=== PATIENT | male | born 1935 | race Caucasian/White ===

== ENCOUNTER 2018-09-05 10:14 | Inpatient (IN) ==
[2018-09-05 10:59] LABS: Hematocrit 39.7 % (39.0-51.0); Hemoglobin 13.4 gm/dL (13.0-17.0); Lymph # (Auto) 0.2 th/mm3 (1.0-4.8); Mean Corpuscular HGB Conc 33.9 % (32.0-36.0); Mean Corpuscular Hemoglobin 29.8 pg (27.0-34.0); Mean Corpuscular Volume 88.2 fL (80.0-100.0); Mean Platelet Volume 6.7 fL (7.0-11.0); Mono # (Auto) 0.4 th/mm3 (0.0-0.9); Mono % (Auto) 4.9 % (0.0-8.0); Neut # (Auto) 7.6 th/mm3 (1.8-7.7); Neut % (Auto) 92.1 % (16.0-70.0); Platelet Count 198 th/mm3 (150-450); Red Cell Distribution Width 14.8 % (11.6-17.2); White Blood Count 8.2 th/mm3 (4.0-11.0)
[2018-09-05 11:11] LABS: Calcium 8.9 mg/dL (8.5-10.1); Carbon Dioxide 22.2 meq/L (21.0-32.0); Potassium 4.4 meq/L (3.5-5.1)
--- NOTE | 2018-09-05 11:17 | ED ---
HPI General Chief Complaint: Trauma Stated Complaint: Trama Transfer/FH Time Seen by Provider: 09/05/18 10:24 Source: patient, EMS and RN notes reviewed Mode of arrival: EMS Limitations: other (poor historian) History of Present Illness HPI narrative: 83-year-old male is a trauma transfer from [facility] for multiple facial fractures. Patient also takes Eliquis. Patient was given 4 mg of morphine for pain control and EMS states that he has been drowsy in transport. He will awaken to questioning and knows that he is at [place] in his name. He states he does remember falling but is a poor historian in terms of details. Related Data Home Medications Medication Instructions Recorded Confirmed aspirin 162 mg PO DAILY 09/05/18 09/05/18 clopidogrel 75 mg PO DAILY 09/05/18 09/05/18 finasteride mg PO DAILY 09/05/18 glipizide mg PO DAILY 09/05/18 levothyroxine mcg PO DAILY 09/05/18 losartan 25 mg PO DAILY 09/05/18 09/05/18 metoprolol tartrate 25 mg PO BID 09/05/18 09/05/18 tamsulosin [Flomax] 0.4 mg PO DAILY 09/05/18 09/05/18 Allergies Allergy/AdvReac Type Severity Reaction Status Date / Time Penicillins AdvReac Hives Verified 09/05/18 10:48 Sulfa (Sulfonamide AdvReac Hives Verified 09/05/18 10:48 Antibiotics) cklo Allergy Hives Uncoded 09/05/18 10:48 Review of Systems ROS: all other systems reviewed are negative [facility] Medical History Medical History Diabetes (Acute) Heart attack (Acute) Hypercholesterolemia (Acute) Hypothyroidism (Acute) Surgical History Surgical History History of angioplasty (Acute) Social History Social History Substance History: No History of Abuse Smoking Status: Former smoker How Often Do You Have a Drink Containing Alcohol: Never Recent Travel in [facility] within the Last 8 Weeks: No Recent Out of Country Travel within the Last 8 Weeks: No Immunization History Tetanus Immunization: >5 Years Exam Narrative Exam Narrative: GENERAL: 83-year-old male who appears drowsy but awakens to voice SKIN: Focused skin assessment warm/dry. HEAD: Ecchymosis noted to face. Normocephalic. EYES: Pupils equal and round. No scleral icterus. No injection or drainage. ENT: No nasal bleeding or discharge. Mucous membranes pink and moist. NECK: Trachea midline. CARDIOVASCULAR: Regular rate and rhythm. RESPIRATORY: No accessory muscle use. Clear to auscultation. Breath sounds equal bilaterally. GASTROINTESTINAL: Abdomen soft, non-tender, nondistended. MUSCULOSKELETAL: No clubbing. No cyanosis. No edema. NEUROLOGICAL: Drowsy but awakens to voice. Moves all extremities, normal speech. Course Consultations Consultation #1: dr syed agrees to repeat imaging and admit Initial Documented Vital Signs Temperature 97.7 F 09/05/18 10:35 Pulse Rate 86 09/05/18 10:35 Respiratory Rate 18 09/05/18 10:35 Blood Pressure 148/68 H 09/05/18 10:35 Pulse Oximetry 96 09/05/18 10:35 Last Documented Vital Signs Temperature 97.7 F 09/05/18 10:35 Pulse Rate 86 09/05/18 10:35 Respiratory Rate 18 09/05/18 10:35 Blood Pressure 148/68 H 09/05/18 10:35 Pulse Oximetry 96 09/05/18 10:[address] [facility] Narrative Medical decision making narrative: Patient arrived as a trauma transfer. Given patient is drowsy and on Eliquis will repeat CT brain to rule out delayed bleed. He will be admitted to the ICU for close monitoring overnight and further care with the trauma service Medical Screen Exam Complete: Yes Emergency Medical Condition: Yes Differential Diagnosis Differential Diagnosis: Fracture, bleed, anemia Lab Data Result diagrams: 09/05/18 10:43 09/05/18 10:43 Lab Results 09/05/18 09/05/18 Range/Units 10:43 10:43 WBC 8.2 (4.0-11.0) th/mm3 RBC 4.50 (4.50-5.90) mil/mm3 Hgb 13.4 (13.0-17.0) gm/dL Hct 39.7 (39.0-51.0) % MCV 88.2 (80.0-100.0) fL MCH 29.8 (27.0-34.0) pg MCHC 33.9 (32.0-36.0) % RDW 14.8 (11.6-17.2) % Plt Count 198 (150-450) th/mm3 MPV 6.7 L (7.0-11.0) fL Neut % (Auto) 92.1 H (16.0-70.0) % Lymph % (Auto) 3.0 L (9.0-44.0) % [place] % (Auto) 4.9 (0.0-8.0) % Eos % (Auto) 0.0 (0.0-4.0) % Baso % (Auto) 0.0 (0.0-2.0) % Neut # (Auto) 7.6 (1.8-7.7) th/mm3 Lymph # (Auto) 0.2 L (1.0-4.8) th/mm3 [place] # (Auto) 0.4 (0.0-0.9) th/mm3 Eos # (Auto) 0.0 (0.0-0.4) th/mm3 Baso # (Auto) 0.0 (0.0-0.2) th/mm3 WBC Differential . Differential Comment Auto diff final Sodium 138 (136-145) meq/L Potassium 4.4 (3.5-5.1) meq/L Chloride 108 H (98-107) meq/L Carbon Dioxide 22.2 (21.0-32.0) meq/L Anion Gap 8 (5-15) meq/L BUN 26 H (7-18) mg/dL Creatinine 1.22 (0.60-1.30) mg/dL Estimated GFR 57 L (>89) mL/min Random Glucose 197 H (74-106) mg/dL Calcium 8.9 (8.5-10.1) mg/dL Discharge Plan Discharge Disposition Patient Disposition: ED Admit(ED Internal Use Only) Discharge Order Discharge Orders: ED Use Only Admit Order (Routine); Ordered 09/05/18 Ordered By: Jess Moffett Discharge Details Diagnosis: Cranial facial fractures Physicians Team ED Provider: Jess Moffett Primary Care Provider: NON STAFF,PROVIDER Attending Provider: Dm Hoffmann Status ED Status: Admitted Patient
--- NOTE | 2018-09-05 11:44 | CT ---
EXAM DATE: 09/05/2018 11:32 AM EST AGE/SEX: 83 years / Male INDICATIONS: Trauma, fall. CLINICAL DATA: This is the patient's initial encounter. Patient reports that signs and symptoms have been present for 1 day and indicates a pain score of Nonresponsive. MEDICAL/SURGICAL HISTORY: Non-responsive. Non-responsive. RADIATION DOSE: 25.04 CTDI (mGy) COMPARISON: No prior exams available for comparison. TECHNIQUE: Contiguous axial images were obtained using helical multirow detector technique. The vol umetric data was post-processed with multiplanar reconstruction in oblique axial, sagittal, and coron al planes. Using automated exposure control and adjustment of the mA and/or kV according to patient s ize, radiation dose was kept as low as reasonably achievable to obtain optimal diagnostic quality kimmy ges. DICOM format image data is available electronically for review and comparison. FINDINGS: No significant subluxation or soft tissue swelling is seen. No definite fracture is identified for t echnique. C2-C3: No appreciable compromise to the thecal sac, exiting nerve roots are seen. The neural foramin a are patent bilaterally. No appreciable thecal sac stenosis is seen. C3-C4: No appreciable compromise to the thecal sac, exiting nerve roots are seen. The neural foramin a are patent bilaterally. No appreciable thecal sac stenosis is seen. Slight bulging disc and hypertr ophic changes are seen with indentation on the thecal sac and no significant compromise to the thecal sac or the exiting nerve roots. C4-C5: No appreciable compromise to the thecal sac, exiting nerve roots are seen. The neural foramin a are patent bilaterally. No appreciable thecal sac stenosis is seen. Slight bulging disc and hypertr ophic changes are seen with indentation on the thecal sac and no significant compromise to the thecal sac or the exiting nerve roots. C5-C6: Significant degenerative changes are present in the disc space and facets. Slight bulging dis c and hypertrophic changes are seen with indentation on the thecal sac and no significant compromise to the thecal sac or the exiting nerve roots. C6-C7: No appreciable compromise to the thecal sac, exiting nerve roots are seen. The neural forami na are patent bilaterally. No appreciable thecal sac stenosis is seen. Slight degenerative changes ar e present in the disc space and facets. Slight bulging disc and hypertrophic changes are seen with indentation on the thecal sac and no signi ficant compromise to the thecal sac or the exiting nerve roots. C7-T1: No appreciable compromise to the thecal sac, exiting nerve roots are seen. The neural foramin a are patent bilaterally. No appreciable thecal sac stenosis is seen. CONCLUSION: Degenerative spondylosis at multiple levels without any significant compromise to the ex iting nerve roots or the thecal sac. Electronically signed by: Buzz Knapp MD Board Certified Radiologist 09/05/2018 11:43 AM EST
--- NOTE | 2018-09-05 11:48 | CT ---
EXAM DATE: 09/05/2018 11:26 AM EST AGE/SEX: 83 years / Male INDICATIONS: Trauma, fall. CLINICAL DATA: This is the patient's initial encounter. Patient reports that signs and symptoms have been present for 1 day and indicates a pain score of Nonresponsive. MEDICAL/SURGICAL HISTORY: Non-responsive. Non-responsive. RADIATION DOSE: 63.83 CTDI (mGy) COMPARISON: No prior exams available for comparison. TECHNIQUE: Contiguous images in the axial and coronal planes were obtained using helical multirow de tector technique. Using automated exposure control and adjustment of the mA and/or kV according to p atient size, radiation dose was kept as low as reasonably achievable to obtain optimal diagnostic garry lity images. DICOM format image data is available electronically for review and comparison. FINDINGS: The nasal septum is slightly towards the left. There is opacification of multiple sinuses most of the tibias or chronic mucoperiosteal thickening, however slight hemorrhage present within the maxillary sinuses. There are fractures of the anterior glenoid air cells and lamina Propecia on the right side with a fracture involving the right frontal sinus. There are also fractures of the lateral khan of b ilateral maxillary sinuses. There are gas bubbles in the soft tissues outside the maxillary sinuses b ilaterally. CONCLUSION: 1. There are fractures of maxillary sinuses, right frontal sinus, and right lamina Propecia. Electronically signed by: Buzz Knapp MD Board Certified Radiologist 09/05/2018 11:47 AM EST
--- NOTE | 2018-09-05 11:51 | CT ---
EXAM DATE: 09/05/2018 11:24 AM EST AGE/SEX: 83 years / Male INDICATIONS: Trauma, fall. CLINICAL DATA: This is the patient's initial encounter. Patient reports that signs and symptoms have been present for 1 day and indicates a pain score of Nonresponsive. MEDICAL/SURGICAL HISTORY: Non-responsive. Non-responsive. RADIATION DOSE: 37.89 CTDI (mGy) COMPARISON: No prior exams available for comparison. TECHNIQUE: CT of the head without contrast. Using automated exposure control and adjustment of the mA and/or kV according to patient size, radiation dose was kept as low as reasonably achievable to ob tain optimal diagnostic quality images. DICOM format image data is available electronically for revi ew and comparison. FINDINGS: There is no evidence for intracranial hemorrhage, mass effect, mass lesions, or edema. The visualized bony structures appear intact. Slight degree of brain atrophy is seen. Slight periventri cular white matter changes are seen nonspecific mostly consistent with chronic small vessel ischemic changes. There are no signs of acute infarction for technique. There are facial bone fractures discu ssed on the patient's facial CT. CONCLUSION: Slight chronic small vessel ischemic and atrophic changes. Facial fractures discussed on the patient's facial CT. Electronically signed by: Buzz Knapp MD Board Certified Radiologist 09/05/2018 11:49 AM EST
[2018-09-05] MEDS ORDERED: Naloxone Inj 0.4 MG/ML Vial IV.PUSH PRN (12:34)
[2018-09-05] MEDS ORDERED: Bisacodyl 10 MG Supp RECTAL PRN (12:34)
[2018-09-05] MEDS ORDERED: Post-op Orders (for Pharmacy) OTHER ONE (12:34)
--- NOTE | 2018-09-05 13:07 | MH ---
cc: Dm Hoffmann MD DATE OF ADMISSION: 09/05/2018 ADMITTING PHYSICIAN: Dm Hoffmann MD, trauma surgery. REASON FOR ADMISSION: Multiple facial fracture and medical problems. HISTORY OF PRESENT ILLNESS: This 83-year-old gentleman fell at home somehow face down and sustained facial fractures. The patient was evaluated at [facility], and a request was made to transfer him to trauma Center, which was readily done. The patient now arrives and is placed in the ICU for further care. PAST MEDICAL HISTORY: Diabetes mellitus, coronary artery disease, and myocardial infarction in the past, hypothyroidism, hypercholesteremia. SURGICAL HISTORY: Coronary artery angioplasty. SOCIAL HISTORY: The patient does not drink. Used to smoke. He is a [place] and retired. PHYSICAL EXAMINATION: GENERAL: A pleasant 83-year-old gentleman, awake, alert, oriented. HEENT: Normocephalic. Trauma to the head consisting of bruising and swelling of the face, pretty severe over both cheeks. Looking at it, I would have thought that the zygomas are fractured, but I do not see that on the CAT scan. Pupils are equal, reactive. Extraocular muscles are intact. The right lower and upper palpebrae are fairly swollen. The patient has some blood in the back of the mouth and some dried blood in the nose. NECK: Bilateral carotid pulses with bilateral carotid bruits, 3-6. No signs of trauma to the neck. CHEST: Bilateral breath sounds. HEART: Regular rate and rhythm. ABDOMEN: Soft. Active bowel sounds. No rebound, no guarding, no masses. EXTREMITIES: The patient has good proximal and distal pulses. No signs of acute deficit. BACK: Normal. NEUROLOGIC: The patient is fully intact. [place] coma scale is 15. He does not have any signs of intracranial injury on the repeat CT scan. Motorically and sensory, the patient is fully intact. Deep tendon reflexes normal. No pathologic reflexes. IMPRESSION: This is an 83-year-old gentleman with extensive facial fractures including maxillary and nasal fractures and frontal sinus fracture. The patient will be admitted, tuned up for surgery, and Dr. Santana has been consulted. It should be noted that Dr. Santana is known to the family, and he previously operated on the patient's , and they are extremely happy that him and Dr. Jauregui are available. CRITICAL CARE TIME: 32 minutes. MD KOMAL Sanford/adarsh , 12:46 PM , 12:54 PM
[2018-09-05] MEDS ORDERED: Morphine Inj 4 MG/ML Vial IV.PUSH PRN (14:08)
[2018-09-05] MEDS ORDERED: Dextrose 50% in Water 50 ML Vial IV.PUSH PRN (14:09)
--- NOTE | 2018-09-05 15:17 | US ---
EXAM DATE: 09/05/2018 3:10 PM EST AGE/SEX: 83 years / Male INDICATIONS: Syncope. CLINICAL DATA: This is the patient's initial encounter. Patient reports that signs and symptoms have been present for 1 day and indicates a pain score of 1/10. MEDICAL/SURGICAL HISTORY: Diabetes. Hypothyroidism. heart attack. Hypercholesterolemia. Angio plasty. COMPARISON: No prior exams available for comparison. VELOCITY PARAMETERS: ICA/CCA Ratio: Right 1.08 , Left 1.21 ICA: Right 115 cm/sec, Left 152 cm/sec CCA: Right 106 cm/sec, Left 126 cm/sec ECA: Right 230 cm/sec, Left 182 cm/sec Vertebral: Right 64 cm/sec antegrade, Left 66 cm/sec antegrade FINDINGS: Right Carotid: No significant plaque is visualized.The waveforms are within normal limits. Left Carotid: Mild arteriosclerotic plaque is visualized. The waveforms are within normal limits. Other: None. CONCLUSION: No evidence for hemodynamically significant stenosis. Electronically signed by: Buzz Knapp MD Board Certified Radiologist 09/05/2018 3:16 PM EST
[2018-09-05] MEDS: Metoprolol Tartrate 25 MG Tablet PO SCH ×2 (15:26→21:07)
[2018-09-05] MEDS: Sod Chloride 0.9% Inj 1,000 ML IV.CONT SCH (15:26)
[2018-09-05] MEDS: Insulin NovoLOG Aspart Correctional Sugar Inj SQ SCH ×2 (17:25→21:08)
[2018-09-05] MEDS: Senna/Docusate Sodium 8.6/50 MG Tablet PO SCH (21:08)
[2018-09-06] MEDS: Sod Chloride 0.9% Inj 1,000 ML IV.CONT SCH (01:42)
[2018-09-06] MEDS: Insulin NovoLOG Aspart Correctional Sugar Inj SQ SCH ×3 (03:13→11:08)
[2018-09-06 05:48] LABS: Baso % (Auto) 0.1 % (0.0-2.0); Eos # (Auto) 0.1 th/mm3 (0.0-0.4); Eos % (Auto) 0.8 % (0.0-4.0); Hematocrit 34.8 % (39.0-51.0); Hemoglobin 11.6 gm/dL (13.0-17.0); Lymph % (Auto) 12.3 % (9.0-44.0); Mean Corpuscular HGB Conc 33.3 % (32.0-36.0); Mean Corpuscular Hemoglobin 29.7 pg (27.0-34.0); Mean Corpuscular Volume 89.2 fL (80.0-100.0); Mean Platelet Volume 6.8 fL (7.0-11.0); Mono % (Auto) 11.9 % (0.0-8.0); Neut # (Auto) 6.1 th/mm3 (1.8-7.7); Neut % (Auto) 74.9 % (16.0-70.0); Platelet Count 187 th/mm3 (150-450); Red Blood Count 3.91 mil/mm3 (4.50-5.90); Red Cell Distribution Width 14.9 % (11.6-17.2); White Blood Count 8.2 th/mm3 (4.0-11.0)
[2018-09-06] MEDS ORDERED: Levothyroxine 50 MCG Tablet PO SCH (06:00)
[2018-09-06 06:15] LABS: Calcium 8.4 mg/dL (8.5-10.1); Carbon Dioxide 22.7 meq/L (21.0-32.0); Potassium 4.9 meq/L (3.5-5.1)
[2018-09-06 07:29] VITALS: TEMP 98.6
[2018-09-06] MEDS: Senna/Docusate Sodium 8.6/50 MG Tablet PO SCH (08:56)
[2018-09-06] MEDS: Metoprolol Tartrate 25 MG Tablet PO SCH (08:56)
--- NOTE | 2018-09-06 11:25 | P.DS ---
Date of admission: 09/05/18 10:30 Primary care physician: PROVIDER NON STAFF Brief History from admission: S/P Fall DS: Diagnosis - Discharge Diagnosis (1) Fall Status: Acute (2) Cranial facial fractures Status: Acute DS: Medications - Discharge Medications Prescriptions: oxycodone-acetaminophen 1 tab PO Q4H PRN #14 tab PRN Reason: Acute Pain DS: Summary Hospital Course: KIVALINA: Fell striking his face. ?LOC. Trauma transfer. On Plavix at home. INJURIES BILAT maxillary sinus fx RIGHT frontal sinus fx RIGHT lamina Propecia PMHx: DM. CAD. WI. HLD. Hypothyroidism. BILAT maxillary sinus fx, RIGHT frontal sinus fx, RIGHT lamina Propecia OMFS consulted, follow-up outpatient Nonoperative management Pain control Bowel regimen OOB- PT and OT ordered Fall secondary to dehydration vs bradycardia Patient reportedly had multiple bouts of diarrhea before feeling lightheaded and falling Encouraged hydration Decreased Lopressor to 12.5 mg BID Hold Plavix for now and discuss risks versus benefits of continuation with PCP Follow-up with PCP in 1 week Plan of care discussed with patient at bedside. Collaborating Trauma surgeon agrees with plan. Case management consulted to assist with discharge planning. Patient is clear from trauma surgery standpoint to safely discharge home. DME ordered. - Time Spent with Patient Total time spent providing and/or coordinating discharge services: Greater than 30 minutes - Quality: VTE Deep Vein Thrombosis/Pulmonary Embolism Present on Admission: No Exam Vital signs: Vital Signs 09/05/18 11:36 09/05/18 11:58 09/05/18 11:59 Temperature Pulse Rate 90 88 86 Respiratory Rate 15 20 16 Blood Pressure 136/63 147/70 H Pulse Oximetry 96 09/05/18 12:00 09/05/18 13:00 09/05/18 14:00 Temperature 97.8 F Pulse Rate 89 91 H 88 Respiratory Rate 18 Blood Pressure 152/72 H 150/69 H 117/56 L Pulse Oximetry 97 95 95 09/05/18 15:00 09/05/18 16:00 09/05/18 17:00 Temperature 97.8 F Pulse Rate 96 H 95 H 92 H Respiratory Rate 16 Blood Pressure 115/65 123/67 135/74 Pulse Oximetry 94 L 94 L 95 09/05/18 18:00 09/05/18 19:00 09/05/18 20:00 Temperature 98.6 F Pulse Rate 94 H 92 H 86 Respiratory Rate 16 Blood Pressure 119/60 125/64 159/72 H Pulse Oximetry 95 95 95 09/05/18 21:00 09/05/18 21:48 09/05/18 22:00 Temperature Pulse Rate 94 H 85 Respiratory Rate 14 Blood Pressure 143/67 H 137/65 Pulse Oximetry 97 95 09/05/18 23:00 09/06/18 00:00 09/06/18 01:00 Temperature 98.2 F Pulse Rate 83 81 80 Respiratory Rate 16 Blood Pressure 134/63 122/58 L 133/74 Pulse Oximetry 93 L 95 95 09/06/18 02:00 09/06/18 02:11 09/06/18 03:00 Temperature Pulse Rate 75 73 Respiratory Rate 14 Blood Pressure 134/63 126/58 L Pulse Oximetry 95 95 09/06/18 04:00 09/06/18 05:00 09/06/18 05:45 Temperature 98.6 F Pulse Rate 72 72 Respiratory Rate 15 16 Blood Pressure 138/61 145/67 H Pulse Oximetry 95 96 09/06/18 06:00 09/06/18 07:00 09/06/18 08:00 Temperature Pulse Rate 70 68 67 Respiratory Rate 14 15 13 Blood Pressure 140/65 145/66 H 129/61 Pulse Oximetry 95 95 93 L 09/06/18 08:58 09/06/18 09:00 09/06/18 09:16 Temperature Pulse Rate 62 65 67 Respiratory Rate 15 24 22 Blood Pressure 137/64 157/74 H Pulse Oximetry 97 96 95 09/06/18 09:21 09/06/18 09:22 09/06/18 09:29 Temperature Pulse Rate Respiratory Rate 18 Blood Pressure 151/70 H 147/69 H Pulse Oximetry 09/06/18 09:58 09/06/18 10:00 09/06/18 11:00 Temperature Pulse Rate 62 60 63 Respiratory Rate 15 14 Blood Pressure 114/55 L 104/59 L Pulse Oximetry 96 94 L 09/06/18 11:16 Temperature Pulse Rate 60 Respiratory Rate 18 Blood Pressure Pulse Oximetry Intake & Output 09/05/18 09/06/18 09/06/18 18:59 06:59 18:59 Intake Total 480 / 480 1600 / 1600 Output Total 300 / 300 500 / 500 Balance 180 / 180 1100 / 1100 Weight 92.4 kg 93 kg Intake: IV 1000 / 1000 NS Inj 1,000 ML @ 80 mls/hr IV. 1000 / 1000 CONT .[id number] [facility] Rx#:[id number] Oral 480 / 480 600 / 600 Output: Urine 300 / 300 500 / 500 Other: # Voids 2 # Bowel Movements 0 Weight On Admission 92.4 kg Narrative: GENERAL: 83-year-old well-nourished, well developed male OOB in chair. SKIN: Warm and dry. HEAD: Normocephalic. Left facial ecchymosis noted. EYES: Pupils equal and round. No scleral icterus. Left periorbital ecchymosis. ENT: No nasal bleeding or discharge. Mucous membranes pink and moist. NECK: Trachea midline. No JVD. CARDIOVASCULAR: Regular rate and rhythm. RESPIRATORY: No accessory muscle use. Lungs clear to auscultation bilaterally. GASTROINTESTINAL: Abdomen soft, non-tender, nondistended. + BS. MUSCULOSKELETAL: Extremities without cyanosis, or edema. MAEW, + perfused NEUROLOGICAL: Awake and alert. Normal speech. Results Procedures completed during hospitalization: . Labs on day of discharge: Labs from last 24 hours 09/06/18 09/06/18 09/06/18 09:02 04:56 04:56 WBC 8.2 RBC 3.91 L Hgb 11.6 L Hct 34.8 L MCV 89.2 MCH 29.7 MCHC 33.3 RDW 14.9 Plt Count 187 MPV 6.8 L Neut % (Auto) 74.9 H Lymph % (Auto) 12.3 [place] % (Auto) 11.9 H Eos % (Auto) 0.8 Baso % (Auto) 0.1 Neut # (Auto) 6.1 Lymph # (Auto) 1.0 [place] # (Auto) 1.0 H Eos # (Auto) 0.1 Baso # (Auto) 0.0 WBC Differential . Differential Comment Auto diff final Sodium 141 Potassium 4.9 Chloride 111 H Carbon Dioxide 22.7 Anion Gap 7 BUN 43 H Creatinine 1.15 Estimated GFR 61 L POC Glucose 98 Random Glucose 107 H Calcium 8.4 L 09/05/18 09/05/18 21:00 17:12 WBC RBC Hgb Hct MCV MCH MCHC RDW Plt Count MPV Neut % (Auto) Lymph % (Auto) [place] % (Auto) Eos % (Auto) Baso % (Auto) Neut # (Auto) Lymph # (Auto) [place] # (Auto) Eos # (Auto) Baso # (Auto) WBC Differential Differential Comment Sodium Potassium Chloride Carbon Dioxide Anion Gap BUN Creatinine Estimated GFR POC Glucose 148 H 164 H Random Glucose Calcium - Impressions ITS Impressions Carotid Doppler Study 09/05/18 00:00 CONCLUSION: No evidence for hemodynamically significant stenosis. Cervical Spine CT 09/05/18 10:30 CONCLUSION: Degenerative spondylosis at multiple levels without any significant compromise to the exiting nerve roots or the thecal sac. Face CT 09/05/18 10:30 CONCLUSION: 1. There are fractures of maxillary sinuses, right frontal sinus, and right lamina Propecia. Head CT 09/05/18 10:30 CONCLUSION: Slight chronic small vessel ischemic and atrophic changes. Facial fractures discussed on the patient's facial CT. Discharge Plan - Discharge Disposition Patient Disposition: Discharge Home - Discharge Condition Condition: Stable - Discharge Order Discharge Orders: Discharge Order (Routine); Ordered 09/06/18 Ordered By: Edward Marion - Physicians Team Primary Care Provider: NON STAFF,PROVIDER Attending Provider: Dm Hoffmann Other Providers: ; Alex Gore MD ; Robert Tian MD ; [employer] ; Raghav Browning MD ; Fatmata Garduno ARNP ; Han Flores MD ; Helen Ariza MD ; Edward Marion ARNP ; Dm Hoffmann MD ; Vikas Hughes DDS ; [employer]
[2018-09-06 12:18] VITALS: BP 126/60; PULSE 66; RESP 31; O2SAT 97
--- NOTE | 2018-09-06 21:23 | ECG ---
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
[2018-09-09] MEDS ORDERED: glipiZIDE 5 MG Tablet PO SCH (09:00)
== END 2018-09-06 12:58 | disposition home or self-care (01) | DRG 87 ==
LOC: NEPE 10:14 → NEDA 10:30 → N03 11:48
PROVIDERS: ADMIT Surgery; ATTEND Surgery
CPT/HCPCS: 70450; 70486; 72125; 80048; 82948; 82962; 85025; 93005; 93880; 94150; 97162; 99285; J1815; J7030